=== PATIENT | male | born 1950 | race African-American/Black ===

== ENCOUNTER 2016-08-11 23:51 | Inpatient (IN) | payer MEDICARE ==
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
--- NOTE | ~2016-08-11 | CN ---
Consultation Report [facility] [address] [place]. [address] NAME: SUNITHA MCFARLANE : 52 STATUS : ADM IN PAT#: [id number] AGE: 65 ADM/REG DATE : 08/11/16 MR#: [id number] REPORT SERV DATE: 08/13/16 DICTATED BY: SHANA PEREZ DATE: 08/13/16 REPORT STATUS : Draft TRANSCRIBED BY: MODMariluz DATE: 08/13/16 PSYCHIATRIC CONSULTATION DATE OF CONSULTATION: 08/13/2016 I reviewed this patient's medical record. HISTORY OF PRESENT ILLNESS: He was admitted with uncontrolled diabetes mellitus, hepatitis C with ascites, and cocaine abuse. PAST PSYCHIATRIC HISTORY: He reports feeling depressed since his 's last October. Following her he went to live with a nephew, who introduced him to cocaine. He has been abusing cocaine and alcohol since then. He says he likes to drink Shan Rodriguez on a daily basis. 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 He has two daughters from a previous marriage, who live in [place]. He said he now plans to live with his brother in the [facility]. MENTAL STATUS: He was cooperative in attitude. His mood was dysphoric. His affect was appropriate. His thinking was logical. He had no delusions. He had no hallucinations. He was oriented to time, place, and person. DIAGNOSIS: 1. Cocaine abuse. 2. Alcohol abuse. 3. Depressive disorder, not otherwise specified. RECOMMENDATIONS: I will change his Wellbutrin to Wellbutrin XL 300 mg p.o. daily. After discharge from this hospital, he should seek followup, outpatient, psychiatric care at a local mental health center. I gave him the names of two mental health clinics in the [facility]. I will sign off. MARTITA/ZEENAT Shana Perez M.D. / [id number] CC: Gaudencio Chapman MD
--- NOTE | ~2016-08-11 | DS ---
Discharge Summary [facility] [address] [place]. [address] NAME: SUNITHA CALVIN : 52 STATUS : DIS IN PAT#: [id number] AGE: 65 ADM/REG DATE : 08/11/16 MR#: [id number] REPORT SERV DATE: 08/16/16 DICTATED BY: JHOAN CHAPMAN DATE: 08/16/16 REPORT STATUS : Draft TRANSCRIBED BY: MODL DATE: 08/16/16 ADMISSION DATE: 08/11/2016 DISCHARGE DATE: 08/16/2016 REASON FOR ADMISSION: Ascites, uncontrolled insulin-dependent diabetes, anasarca. HISTORY OF PRESENT ILLNESS: Please refer Dr. Paez's history and physical dated 08/12/2016, for complete details regarding the patient's admission. HOSPITAL COURSE: In brief, the patient was admitted to the Hospitalist Service for management of multiple issues. 1. Uncontrolled diabetes. He has a history of being insulin-dependent; however, he has been depressed and using alcohol cocaine to deal with his mental illness and has been noncompliant with his insulin. He came in with uncontrolled sugars. warehouse team leader was consulted, educating him on checking his sugars and administering himself insulin. His sugars have seemed to be decently controlled on the current regimen. He was getting food from [employer] and hiding it in the hospital room, but at any rate, his diabetes is under better control. 2. Hepatitis C. This has been established. We are arranging a followup appointment with Dr. Will Bower. 3. Cirrhosis with ascites. The patient was started on a Lasix drip very briefly and then transitioned over to oral Lasix and Aldactone. He does no longer have any edema, alcohol abuse. No signs of withdrawal at the hospitalization. He was educated on cocaine abuse. He was educated on major depressive disorder triggered by the of his in 10/2015. Dr. Nino followed along, recommended starting him on Wellbutrin, which he has tolerated very well. 4. Dental caries with a cracked tooth. OMFS was consulted. Dr. Loretta Rene evaluated the patient and recommended outpatient followup including x-rays and probable tooth extraction done as an outpatient and for the patient to call to make an appointment at the time of discharge. The patient will be discharged today in stable condition. DISCHARGE DIAGNOSES: Uncontrolled type 2 diabetes, now improved; hepatitis C with cirrhosis; ascites; anasarca, now improved; cocaine abuse; alcohol abuse; and major depressive disorder. PROCEDURES: Include consultation with Dr. Nino and Dr. Loretta Rene and microfilm camera operator. DISCHARGE MEDICATIONS: Include Wellbutrin XL 150 mg once a day, Lasix 20 mg a day, Apidra insulin 25 units with meals, glargine insulin 50 units at bedtime, lactulose 30 mL per day, Aldactone 50 mg per day. The patient will follow up with his PCP and Dr. Will Bower, [facility] in the next couple weeks. He has now gotten insurance. Spending over 30 minutes on discharge planning and coordination of care on Mr. Calvin. Discharge Summary [address] [address] NAME: SUNITHA CALVIN : 52 STATUS : DIS IN PAT#: [id number] AGE: 65 ADM/REG DATE : 08/11/16 MR#: [id number] REPORT SERV DATE: 08/16/16 DICTATED BY: JHOAN CHAPMAN DATE: 08/16/16 REPORT STATUS : Draft TRANSCRIBED BY: ZEENAT DATE: 08/16/16 DICTATED BY: MD MECCA Jung/ZEENAT Jhoan Chapman MD / [id number] CC: Jhoan Chapman MD
[2016-08-12 00:28] LABS: ASCORBIC ACID (UR NOT ORDER) NEG (NEG); BILIRUBIN, URINE NEGATIVE (NEG); ER URINALYSIS TAT 0 Hrs 00 Mins; KETONE, URINE TRACE MG/DL (NEG); LEUKOCYTE ESTERASE(NOT OR NEG (NEG); NITRITE (URINE) NEG (NEG); WBC (NOT ORDERED) (RFLEX) 1 (0-5)
[2016-08-12 00:35] LABS: AMPHETAMINES (NOT ORD) NEG (NEG); BARBITURATES (NOT ORDERED NEG (NEG); BENZODIAZEPINES (NOT ORD) NEG (NEG); CANNABINOIDS (THC) NEG (NEG); COCAINE (NOT ORDERED) POS (NEG); OPIATES NEG (NEG); PHENCYCLIDINE(PCP) NEG (NEG); TRICYCLICS NEG (NEG)
[2016-08-12 01:02] LABS: BASOPHILS 0.3 %; BASOPHILS ABSOLUTE 0.02 10/3/uL (0.0-0.16); EOSINOPHILS 0.7 %; EOSINOPHILS ABSOLUTE 0.05 10/3/uL (0.0-0.53); ER CBC TAT 0 Hrs 09 Mins; HEMATOCRIT 39.1 % (40.0-51.0); HEMOGLOBIN 13.7 g/dL (13.6-17.8); IMMATURE GRANULOCYTES 0.3 %; IMMATURE GRANULOCYTES ABSOLUTE 0.02 10/3/uL (0.0-0.11); LYMPHOCYTES 18.4 %; MANUAL DIFF NO %; MEAN CORPUSCULAR HEMOGLOB 32.3 pg (26.0-34.0); MEAN CORPUSCULAR VOLUME 92.2 fL (80-100); MEAN PLATELET VOLUME 11.3 fL (9.2-13.0); MONOCYTES ABSOLUTE 0.85 10/3/uL (0.21-1.20); NEUTROPHILS 68.3 %; NEUTROPHILS ABSOLUTE 4.83 10/3/uL (2.02-8.40); PLATELET COUNT 179 10/3/uL (150-400); RBC DISTRIBUTION WIDTH 12.6 % (12.0-16.0); RED CELL COUNT 4.24 10/6/uL (4.7-6.1); WHITE BLOOD CELLS 7.1 10/3/uL (4.5-10.5)
[2016-08-12 01:06] LABS: PARTIAL THROMBO TIME 27.1 SEC (22.5-37.2); PROTIME (NOT ORD) 13.2 SEC (12.0-14.5)
[2016-08-12 01:07] LABS: ACETONE NEG
[2016-08-12 01:16] LABS: ACETAMINOPHEN LEVEL (TYLENOL) < 2.0 MCG/ML (10.0-20.0); ALCOHOL < 10 MG/DL (0); SALICYLATE < 1.7 MG/DL (-)
[2016-08-12 01:26] LABS: A/G RATIO 0.7 (0.7-1.9); ALBUMIN 2.6 G/DL (3.5-5.0); ALKALINE PHOSPHATASE 339 U/L (45-117); CALCIUM, SERUM 8.1 MG/DL (8.5-10.4); CHLORIDE, SERUM 102 MMOL/L (96-112); CO2 (CARBON DIOXIDE) 27 MMOL/L (24-34); CREATININE 0.69 MG/DL (0.70-1.30); GFR AFRICAN AMERICAN 116 ML/MIN (>=60); GFR NON AFRICAN AMERICAN 100 ML/MIN (>=60); GLOBULIN 3.6 G/DL (2.5-4.1); GLUCOSE, SERUM 578 MG/DL (60-99); POTASSIUM, SERUM 4.2 MMOL/L (3.5-5.3); SGPT(ALT) 52 U/L (5-65); SODIUM, SERUM 138 MMOL/L (135-148); TOTAL BILIRUBIN 0.5 MG/DL (0-1.2); TOTAL PROTEIN 6.2 G/DL (6.0-8.5); TROPONIN I <0.02 NG/ML (<0.05)
[2016-08-12 01:36] LABS: BUN (BLOOD UREA NITROGEN) 7 MG/DL (6-23); SGOT(AST) 93 U/L (5-40)
[2016-08-12] MEDS ORDERED: LANTUS SC (03:49)
[2016-08-12] MEDS ORDERED: APIDRA SC (03:49)
[2016-08-12 12:23] LABS: BASOPHILS 0.4 %; BASOPHILS ABSOLUTE 0.03 10/3/uL (0.0-0.16); EOSINOPHILS 1.4 %; EOSINOPHILS ABSOLUTE 0.11 10/3/uL (0.0-0.53); HEMATOCRIT 39.2 % (40.0-51.0); HEMOGLOBIN 13.6 g/dL (13.6-17.8); IMMATURE GRANULOCYTES 0.3 %; IMMATURE GRANULOCYTES ABSOLUTE 0.02 10/3/uL (0.0-0.11); LYMPHOCYTES 27.1 %; LYMPHOCYTES ABSOLUTE 2.06 10/3/uL (0.67-4.30); MEAN CORPUS HGB CONC 34.7 g/dL (32.0-36.0); MEAN CORPUSCULAR HEMOGLOB 31.9 pg (26.0-34.0); MEAN CORPUSCULAR VOLUME 91.8 fL (80-100); MEAN PLATELET VOLUME 10.8 fL (9.2-13.0); MONOCYTES 9.9 %; MONOCYTES ABSOLUTE 0.75 10/3/uL (0.21-1.20); NEUTROPHILS 60.9 %; NEUTROPHILS ABSOLUTE 4.64 10/3/uL (2.02-8.40); PLATELET COUNT 191 10/3/uL (150-400); RBC DISTRIBUTION WIDTH 12.7 % (12.0-16.0); RED CELL COUNT 4.27 10/6/uL (4.7-6.1); WHITE BLOOD CELLS 7.6 10/3/uL (4.5-10.5)
[2016-08-12 12:24] LABS: MANUAL DIFF NO %
[2016-08-12 12:29] LABS: PARTIAL THROMBO TIME 31.9 SEC (22.5-37.2); PROTIME (NOT ORD) 13.4 SEC (12.0-14.5)
[2016-08-12 12:39] LABS: B NATRIURETIC PEPTIDE (BNP) 108.8 PG/ML (< 100.0)
[2016-08-12 12:43] LABS: A/G RATIO 0.6 (0.7-1.9); ALBUMIN 2.3 G/DL (3.5-5.0); BUN (BLOOD UREA NITROGEN) 9 MG/DL (6-23); CALCIUM, SERUM 7.9 MG/DL (8.5-10.4); CHLORIDE, SERUM 102 MMOL/L (96-112); CO2 (CARBON DIOXIDE) 31 MMOL/L (24-34); CREATININE 0.57 MG/DL (0.70-1.30); GFR AFRICAN AMERICAN 126 ML/MIN (>=60); GFR NON AFRICAN AMERICAN 109 ML/MIN (>=60); GLOBULIN 3.8 G/DL (2.5-4.1); POTASSIUM, SERUM 3.5 MMOL/L (3.5-5.3); SGOT(AST) 90 U/L (5-40); SGPT(ALT) 53 U/L (5-65); SODIUM, SERUM 136 MMOL/L (135-148); TOTAL BILIRUBIN 0.7 MG/DL (0-1.2); TOTAL PROTEIN 6.1 G/DL (6.0-8.5); TROPONIN I 0.02 NG/ML (<0.05)
[2016-08-12 12:45] LABS: ALKALINE PHOSPHATASE 276 U/L (45-117); GLUCOSE, SERUM 298 MG/DL (60-99)
[2016-08-13 05:49] LABS: BASOPHILS 0.3 %; BASOPHILS ABSOLUTE 0.02 10/3/uL (0.0-0.16); EOSINOPHILS 0.4 %; EOSINOPHILS ABSOLUTE 0.03 10/3/uL (0.0-0.53); HEMATOCRIT 39.9 % (40.0-51.0); IMMATURE GRANULOCYTES 0.4 %; IMMATURE GRANULOCYTES ABSOLUTE 0.03 10/3/uL (0.0-0.11); LYMPHOCYTES 21.2 %; LYMPHOCYTES ABSOLUTE 1.63 10/3/uL (0.67-4.30); MEAN CORPUS HGB CONC 35.1 g/dL (32.0-36.0); MEAN CORPUSCULAR HEMOGLOB 32.5 pg (26.0-34.0); MEAN CORPUSCULAR VOLUME 92.6 fL (80-100); MEAN PLATELET VOLUME 11.6 fL (9.2-13.0); MONOCYTES 13.5 %; MONOCYTES ABSOLUTE 1.04 10/3/uL (0.21-1.20); NEUTROPHILS 64.2 %; NEUTROPHILS ABSOLUTE 4.94 10/3/uL (2.02-8.40); PLATELET COUNT 199 10/3/uL (150-400); RBC DISTRIBUTION WIDTH 12.6 % (12.0-16.0); RED CELL COUNT 4.31 10/6/uL (4.7-6.1); WHITE BLOOD CELLS 7.7 10/3/uL (4.5-10.5)
[2016-08-13 05:50] LABS: MANUAL DIFF NO %
[2016-08-13 06:04] LABS: A/G RATIO 0.6 (0.7-1.9); ALBUMIN 2.3 G/DL (3.5-5.0); BUN (BLOOD UREA NITROGEN) 8 MG/DL (6-23); CALCIUM, SERUM 8.4 MG/DL (8.5-10.4); CHLORIDE, SERUM 98 MMOL/L (96-112); CO2 (CARBON DIOXIDE) 29 MMOL/L (24-34); CREATININE 0.66 MG/DL (0.70-1.30); GFR AFRICAN AMERICAN 118 ML/MIN (>=60); GFR NON AFRICAN AMERICAN 102 ML/MIN (>=60); GLOBULIN 4.1 G/DL (2.5-4.1); PHOSPHORUS, SERUM 3.1 MG/DL (2.5-4.5); SGPT(ALT) 57 U/L (5-65); TOTAL BILIRUBIN 0.7 MG/DL (0-1.2); TOTAL PROTEIN 6.4 G/DL (6.0-8.5)
[2016-08-13 06:07] LABS: ALKALINE PHOSPHATASE 183 U/L (45-117); GLUCOSE, SERUM 233 MG/DL (60-99); POTASSIUM, SERUM 4.3 MMOL/L (3.5-5.3); SGOT(AST) 133 U/L (5-40); SODIUM, SERUM 133 MMOL/L (135-148)
[2016-08-14 14:44] LABS: BUN (BLOOD UREA NITROGEN) 7 MG/DL (6-23); CHLORIDE, SERUM 103 MMOL/L (96-112); CO2 (CARBON DIOXIDE) 30 MMOL/L (24-34); CREATININE 0.48 MG/DL (0.70-1.30); GFR AFRICAN AMERICAN 135 ML/MIN (>=60); GFR NON AFRICAN AMERICAN 116 ML/MIN (>=60); SODIUM, SERUM 137 MMOL/L (135-148)
[2016-08-14 14:46] LABS: GLUCOSE, SERUM 143 MG/DL (60-99); POTASSIUM, SERUM 3.4 MMOL/L (3.5-5.3)
[2016-08-15 07:17] LABS: BUN (BLOOD UREA NITROGEN) 9 MG/DL (6-23); CALCIUM, SERUM 8.1 MG/DL (8.5-10.4); CHLORIDE, SERUM 103 MMOL/L (96-112); CO2 (CARBON DIOXIDE) 30 MMOL/L (24-34); CREATININE 0.54 MG/DL (0.70-1.30); GFR AFRICAN AMERICAN 129 ML/MIN (>=60); GFR NON AFRICAN AMERICAN 111 ML/MIN (>=60); SODIUM, SERUM 138 MMOL/L (135-148)
[2016-08-15 07:18] LABS: GLUCOSE, SERUM 197 MG/DL (60-99); POTASSIUM, SERUM 4.6 MMOL/L (3.5-5.3)
[2016-08-16] MEDS ORDERED: WELLXL150 PO (09:52)
[2016-08-16] MEDS ORDERED: APIDRA SC (09:53)
[2016-08-16] MEDS ORDERED: L20 PO (09:53)
[2016-08-16] MEDS ORDERED: LANTUS SC (09:54)
[2016-08-16] MEDS ORDERED: CONSTULOSE PO (09:55)
[2016-08-16] MEDS ORDERED: SPIRO50 PO (09:55)
[2016-11-07] MEDS ORDERED: MYRBETRIQ50 MG PO (11:15)
== END 2016-08-16 11:09 | disposition home or self-care (01) | DRG 433 ==
LOC: ER 23:51 → 5SO 23:59
PROVIDERS: Hospitalist; Internal Medicine; Specialist
DX: K70.31 Alcoholic cirrhosis of liver with ascites (principal); E44.0 Moderate protein-calorie malnutrition; E11.65 Type 2 diabetes mellitus with hyperglycemia; F32.9 Major depressive disorder, single episode, unspecified; Z91.14 Patient's other noncompliance with medication regimen; B18.2 Chronic viral hepatitis C; F14.10 Cocaine abuse, uncomplicated; F10.20 Alcohol dependence, uncomplicated; K02.9 Dental caries, unspecified; K03.81 Cracked tooth
CPT/HCPCS: 71010; 74176; 80048; 80053; 80305; 80307; 81001; 82009; 82140; 82962; 83036; 83735; 83880; 84100; 84443; 84484; 85025; 85610; 85730; 93005; 96374; 99285; A9270-GY; J1940